=== PATIENT | female | born 2000 | race African-American/Black ===

== ENCOUNTER 2019-04-26 10:32 | Inpatient (IN) | payer OTHER ==
[2019-04-26] MEDS ORDERED: ALUMINUM HYDROXIDE 30 ML CUP PO (11:30)
[2019-04-26 11:41] LABS: ADD UMIC YES; UR ASCORBIC ACID NEGATIVE (NEGATIVE); UR BACTERIA MODERATE /HPF (NONE SEEN); UR BILIRUBIN (Dip) NEGATIVE (NEGATIVE); UR BLOOD (Dip) NEGATIVE (NEGATIVE); UR CLARITY CLOUDY (CLEAR); UR COLOR YELLOW (YELLOW); UR GLUCOSE (Dip) NEGATIVE (NEGATIVE); UR KETONES (Dip) NEGATIVE (NEGATIVE); UR LEUKOCYTE ESTERASE (Dip) 3+ Leu/ul (NEGATIVE); UR NITRITE (Dip) NEGATIVE (NEGATIVE); UR RBC 6 /HPF (0-5); UR SPECIFIC GRAVITY (Dip) 1.013 (1.003-1.030); UR SQUAMOUS EPITHELIAL CELL MODERATE /HPF (FEW); UR TOTAL PROTEIN (Dip) NEGATIVE (NEGATIVE); UR UROBILINOGEN (Dip) NEGATIVE (NEGATIVE); UR WBC 17 /HPF (0-5)
[2019-04-26 11:52] LABS: ADD MAN DIFF? NO
[2019-04-26 11:56] LABS: ABNORMAL IP MESSAGE 1; BASOPHILS % 0.3 % (0.0-2.0); EOSINOPHILS % 0.3 % (0.0-7.0); HEMATOCRIT 35.9 % (37.0-47.0); HEMOGLOBIN 12.3 g/dl (12.0-16.0); LYMPHOCYTES # 1.5 10^3/ul (0.8-2.9); MEAN CORPUSCULAR HEMOGLOBIN 32.1 pg (29.0-33.0); MEAN CORPUSCULAR HGB CONC 34.3 g/dl (32.0-37.0); MEAN CORPUSCULAR VOLUME 93.7 fl (72.0-104.0); MEAN PLATELET VOLUME 13.2 fl (7.4-10.4); MONOCYTE # 0.6 10^3/ul (0.3-0.9); MONOCYTES % 5.7 % (0.0-13.0); NEUTROPHIL # 8.7 10^3/ul (1.6-7.5); NEUTROPHILS % 79.3 % (30.0-74.0); PLATELET COUNT 132 10^3/UL (140-415); RED BLOOD COUNT 3.83 10^6/ul (4.20-5.40); RED CELL DISTRIBUTION WIDTH 13.1 % (11.5-14.5)
[2019-04-26 11:56] LABS: WHITE BLOOD COUNT 10.9 10^3/ul (4.8-10.8)
[2019-04-26 12:21] LABS: POSITIVE DIFF @See below
[2019-04-26 12:22] LABS: ALANINE AMINOTRANSFERASE 31 IU/L (13-69); ALBUMIN 3.6 g/dl (3.3-4.9); ALBUMIN/GLOBULIN RATIO 1.24; ALKALINE PHOSPHATASE 63 IU/L (42-121); ANION GAP 8 (5-13); ASPARTATE AMINO TRANSFERASE 29 IU/L (15-46); BILIRUBIN,INDIRECT 0.3 mg/dl (0-1.1); BILIRUBIN,TOTAL 0.3 mg/dl (0.2-1.3); BLOOD UREA NITROGEN 9 mg/dl (7-20); CALCIUM 9.1 mg/dl (8.4-10.2); CARBON DIOXIDE 21 mmol/L (21-31); CHLORIDE 108 mmol/L (97-110); CREATININE 0.62 mg/dl (0.44-1.00); Estimated GFR > 60 mL/min (>60); GLUCOSE 89 mg/dl (70-220); LIPASE 22 U/L (23-300); POTASSIUM 3.7 mmol/L (3.5-5.1); SODIUM 137 mmol/L (135-144); TOTAL PROTEIN 6.5 g/dl (6.1-8.1)
[2019-04-26] MEDS: FAMOTIDINE 20 MG TAB PO (13:25)
[2019-04-26] MEDS: CEFAZOLIN 2 GM/50 ML (PMX) 50 ML IVPB ×2 (14:45→22:31)
[2019-04-26] MEDS: ACETAMINOPHEN 325 MG TAB PO (14:46)
[2019-04-26] MEDS: AL HYDROX/MG HYDROX/SIMETH 30 ML CUP PO (14:46)
[2019-04-26] MEDS: LACTATED RINGER'S 1,000 ML IV (14:46)
[2019-04-26] MEDS: MAGNESIUM SULFATE 4 GM/100 ML 100 ML IV (19:28)
[2019-04-26] MEDS: MAGNESIUM SULFATE 40GM/1000ML 1,000 ML IV (20:22)
[2019-04-26] MEDS: BETAMET NA PHOS/AC(6 MG/ML) 2 ML INJ SYG IM (20:28)
[2019-04-27 01:26] LABS: MAGNESIUM 5.5 mg/dl (1.7-2.5)
[2019-04-27] MEDS: LACTATED RINGER'S 1,000 ML IV ×4 (04:26→21:15)
[2019-04-27] MEDS: CEFAZOLIN 2 GM/50 ML (PMX) 50 ML IVPB ×3 (06:31→23:43)
[2019-04-27 06:45] LABS: MAGNESIUM 6.3 mg/dl (1.7-2.5)
[2019-04-27] MEDS: ONDANSETRON 4 MG INJ IV (11:30)
[2019-04-27 12:26] LABS: MAGNESIUM 6.5 mg/dl (1.7-2.5)
[2019-04-27] MEDS: BETAMET NA PHOS/AC(6 MG/ML) 2 ML INJ SYG IM (20:15)
[2019-04-28] MEDS: LACTATED RINGER'S 1,000 ML IV (05:33)
[2019-04-28] MEDS: CEFAZOLIN 2 GM/50 ML (PMX) 50 ML IVPB ×2 (05:33→14:10)
== END 2019-04-28 16:20 | disposition home or self-care (01) | DRG 833 ==
LOC: OBT 10:32 → L-D 10:32 → PP1 04-27 21:28 → L-D 18:52 → OBT 18:40 → L-D 18:40
DX: O23.43 Unspecified infection of urinary tract in pregnancy, third trimester (principal); Z3A.31 31 weeks gestation of pregnancy
CPT/HCPCS: 76817; 76818; 80053; 81001; 83690; 83735; 85025; 86850; 86900; 86901; 87086; 96360; 96361; 96372